=== PATIENT | female | born 1955 | race African-American/Black ===

== ENCOUNTER 2023-09-08 16:36 | Emergency (ER) | payer MEDICARE, OTHER ==
[~2023-09-08] VITALS: Ht 162.6 cm; Wt 90.0 kg
[2023-09-08 16:39] VITALS: O2SAT 96
[2023-09-08 18:11] LABS: BASOPHILS % 1.2 % (0.0-2.0); EOSINOPHILS % 4.6 % (0.0-5.0); HEMATOCRIT. 42.1 % (36.0-48.0); HEMOGLOBIN. 14.1 g/dL (12.0-16.0); LYMPHOCYTES % 19.5 % (20.0-50.0); MEAN CORPUSCULAR HEMOGLOBIN 29.5 pg (28.0-32.0); MEAN CORPUSCULAR HGB CONC 33.6 g/dL (31.0-37.0); MEAN CORPUSCULAR VOLUME 87.8 fL (81.0-99.0); MEAN PLATELET VOLUME 8.8 fl (7.4-10.4); MONOCYTES % 11.6 % (2.0-8.0); NEUTROPHILS % 63.1 % (40.0-76.0); PLATELET 442 x1000/uL (130-400); RED BLOOD CELL COUNT 4.79 mill/uL (4.2-5.4); RED CELL DISTRIBUTION WIDTH 14.4 % (11.6-14.6)
[2023-09-08 18:23] LABS: PROTHROMBIN TIME 11.2 sec (9.6-11.0)
[2023-09-08 18:27] LABS: ALANINE AMINOTRANSFERASE 12 IU/L (10-49); ALBUMIN 3.9 g/dL (3.2-4.8); ASPARTATE AMINOTRANSFERASE 14 IU/L (<34); BILIRUBIN TOTAL 0.4 mg/dL (0.1-1.0); CALCIUM 9.2 mg/dL (8.7-10.4); CARBON DIOXIDE 26 mEq/L (21-32); CHLORIDE 101 mEq/L (98-107); CREATININE 0.8 mg/dL (0.6-1.0); GLUCOSE 226 mg/dL (70-105); SODIUM 138 mEq/L (136-145); TROPONIN I HIGH SENSITIVITY 7 ng/L (3.0-34); UREA NITROGEN BLOOD 13 mg/dL (9-23)
[2023-09-08 18:29] LABS: POTASSIUM 2.8 mEq/L (3.5-5.1)
[2023-09-08] MEDS ORDERED: LEVOFLOXACIN 750MG PREMIX 150 ML IV STA (20:50)
[2023-09-08] MEDS ORDERED: KCL 20MEQ/100ML PREMIX 100 ML IV ONE (21:00)
[2023-09-08] MEDS ORDERED: POTASSIUM CHLORIDE 20MEQ TABLET SR PO ONE (21:00)
[2023-09-08 21:57] LABS: TROPONIN I HIGH SENSITIVITY 5 ng/L (3.0-34)
[2023-09-08 22:46] VITALS: BP 120/62; PULSE 83; RESP 16; TEMP 98
== END 2023-09-08 22:58 | disposition short-term general hospital (02) ==
LOC: ER 16:36 → EDBEDREQ 18:02 → ER 22:58
DX: R55 Syncope and collapse (principal); J18.9 Pneumonia, unspecified organism; E87.6 Hypokalemia; I10 Essential (primary) hypertension; E78.00 Pure hypercholesterolemia, unspecified; E11.9 Type 2 diabetes mellitus without complications; J45.909 Unspecified asthma, uncomplicated; I48.91 Unspecified atrial fibrillation; Z88.0 Allergy status to penicillin; Z88.5 Allergy status to narcotic agent
CPT/HCPCS: 80053; 85025; 85610; 84484; 36415; 71045; 70450; 93005; 96367; 96365; 99285; J3480; J1956; Z7610 ×2; 96361